=== PATIENT | male | born 1985 | race Caucasian/White ===

== ENCOUNTER 2021-04-20 16:26 | Emergency (ER) | payer OTHER ==
[~2021-04-20] VITALS: Ht 180.3 cm; Wt 95.3 kg
--- NOTE | 2021-04-20 16:26 | NUR ---
pt ambulated to bed 06. BIBA accompanied by [place] [employer].
[2021-04-20] MEDS ORDERED: LORazepam 2 MG/ML VIAL IVP ONE (16:40)
[2021-04-20 17:05] VITALS: BP 133/91
[2021-04-20 17:13] LABS: BASOPHILS % (AUTO) 0.3 % (0.0-2.0); EOSINOPHILS % (AUTO) 0.4 % (0.0-4.0); HEMATOCRIT 45.5 % (36-52); HEMOGLOBIN 15.3 g/dL (12.0-18.0); LYMPHOCYTES # (AUTO) 1.6 K/uL (2.0-11.5); LYMPHOCYTES % (AUTO) 34.4 % (20.5-51.1); MEAN CORPUSCULAR HEMOGLOBIN 32 pg (27-31); MEAN CORPUSCULAR HGB CONC 34 g/dL (33-37); MEAN CORPUSCULAR VOLUME 94.5 fL (80-94); MONOCYTES # (AUTO) 0.3 K/uL (0.8-1.0); MONOCYTES % (AUTO) 6.5 % (1.7-9.3); NEUTROPHILS # (AUTO) 2.7 K/uL (1.8-7.7); NEUTROPHILS % (AUTO) 58.4 % (42.2-75.2); PLATELET COUNT (AUTO) 186 K/uL (140-450); RED BLOOD CELL COUNT(AUTO) 4.81 MIL/uL (4.20-6.10); RED CELL DISTRIBUTION WIDTH 13.8 % (11.6-13.7); WHITE BLOOD COUNT (AUTO) 4.6 K/uL (4.8-10.8)
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
--- NOTE | 2021-04-20 17:24 | NUR ---
Pt taken to CT via W/C.
[2021-04-20] MEDS ORDERED: LORazepam 1 MG TAB PO ONE (17:25)
[2021-04-20 17:26] LABS: ALBUMIN 4.4 g/dL (3.4-5.0); ASPARTATE AMINOTRANSFERASE 24 U/L (15-37); CARBON DIOXIDE 26.2 mmol/L (21-32); CHLORIDE 106 mmol/L (98-107); GFR ARICAN-AMERICAN 109 mL/min (>90); GLUCOSE 105 mg/dL (74-106); POTASSIUM 3.2 mmol/L (3.5-5.1); SODIUM SERUM 140 mmol/L (136-145); TOTAL BILIRUBIN 0.4 mg/dL (0.0-1.0); UREA NITROGEN, BLOOD 9 mg/dL (7-18)
[2021-04-20] MEDS ORDERED: LORazepam 1 MG TAB ONE (17:28)
[2021-04-20 17:30] LABS: ACETAMINOPHEN < 0.5 ug/ml (10-30); SALICYLATE < 2.8 mg/dL (2.8-20.0)
--- NOTE | 2021-04-20 17:41 | NUR ---
PT brought to ER bed 6 via W/C.
--- NOTE | 2021-04-20 17:55 | NUR ---
Provided patient with sandwich, juice, and crackers, patient calm and cooperative.
--- NOTE | 2021-04-20 18:13 | NUR ---
Pt ambulated to restroom with a steady gait
--- NOTE | 2021-04-20 18:22 | NUR ---
Pt ambulated to ER bed 6 with a steady gait.
[2021-04-20 18:35] LABS: APPEARANCE,URINE CLEAR (CLEAR); BILIRUBIN,URINE NEGATIVE (NEGATIVE); BLOOD, URINE TRACE-I (NEGATIVE); COLOR,URINE YELLOW (YELLOW); LEUKOCYTE ESTERASE ,URINE TRACE (NEGATIVE); NITRITE, URINE NEGATIVE (NEGATIVE); UGLUCOSE NEGATIVE (NEGATIVE)
[2021-04-20 18:51] LABS: BARBITURATE, URINE NEGATIVE ng/ml (NEG <=200); BENZODIAZEPINE, URINE NEGATIVE ng/mL (NEG <=200); CANNABINOID, URINE NEGATIVE ng/mL (NEG <=50); COCAINE, URINE POSITIVE ng/mL (NEG <=300); OPIATE, URINE NEGATIVE ng/mL (NEG <=2000); PHENCYCLIDINE SCREEN,URINE NEGATIVE ng/mL (NEG <=25)
--- NOTE | 2021-04-20 18:54 | NUR ---
Pt sleeping on right side, VSS, will continue to monitor.
--- NOTE | 2021-04-20 19:16 | NUR ---
Gave report to KATHERINE Dougherty. Transfer of care at this time.
--- NOTE | 2021-04-20 19:30 | NUR ---
Patient appears to be resting comfortably in bed. Vital Signs within normal limits. Respirations even and unlabored.
--- NOTE | 2021-04-20 23:49 | NUR ---
PT SLEEPING IN BED. EVEN CHEST RISE AND FALL NOTED.
--- NOTE | 2021-04-21 01:17 | NUR ---
PT AWAKE AND ASKING FOR WATER.
--- NOTE | 2021-04-21 03:32 | NUR ---
WAKED SHARON AND PCR TO LAB AND HANDED TO PHLEB
--- NOTE | 2021-04-21 05:55 | NUR ---
Still patient resting comfortable in bed. Vital Signs within normal limits.
--- NOTE | 2021-04-21 07:14 | NUR ---
SPOKE WITH FRACISCO FROM [facility]. WANTS FACESHEET AND HOLD FAXED TO [phone] FOR BED PLACEMENT
--- NOTE | 2021-04-21 09:07 | NUR ---
PATIENT AMBULATED TO RESTROOM ACCOMPANIED BY 1-1 SITTER.
[2021-04-21] MEDS ORDERED: HYDROXYZINE HYDROCHLORIDE 25 MG TAB PO ONE (09:15)
[2021-04-21] MEDS ORDERED: levETIRAcetam 500 MG TAB PO ONE ×2 (09:50→10:00)
[2021-04-21] MEDS ORDERED: LEVE1000 PO (10:02)
--- NOTE | 2021-04-21 10:30 | NUR ---
PT ALERT AND AWAKE, BREATHING EVEN AND UNLABORED, NO DISTRESS NOTED. ALL NEEDS MET AT THIS TIME. SITTER REMAINS AT BEDSIDE
--- NOTE | 2021-04-21 12:00 | NUR ---
PT ALERT AND AWAKE, BREATHING EVEN AND UNLABORED, NO DISTRESS NOTED. ALL NEEDS MET AT THIS TIME. SITTER REMAINS AT BEDSIDE
[2021-04-21] MEDS ORDERED: POTASSIUM CHLORIDE 10 MEQ TABER PO ONE (12:15)
--- NOTE | 2021-04-21 12:16 | NUR ---
SPOKE WITH WILBUR FROM [facility]. STATES THEY MAY BE ABLE TO ACCEPT PATIENT IF PT RECEIVES 20 MEQ [address]SIUM [address] CHAMORRO MADE AWARE. PT RECEIVED MEDICATION AND WILBUR RENOTIFIED.
--- NOTE | 2021-04-21 13:37 | NUR ---
Patient to be transferred to [facility]. Is being transferred due to higher level of care. Receiving facility has accepting physician and available space. ER physician has signed transfer form. Patient or responsible libertarian has agreed to transfer and signed form. Patient belongings inventoried and will be sent with patient. Copy of nursing notes, lab reports, EKG, Physicians Orders and X-rays to be sent with patient. Report called to Amy MURPHY at receiving facility. [facility] ambulance service has been called for transfer. ETA is 10mins.
--- NOTE | 2021-04-21 14:00 | NUR ---
PT RESTING WITH EYES CLOSED, BREATHING EVEN AND UNLABORED. SITTER REMAINS AT BEDSIDE
[2021-04-21 15:26] VITALS: BP 140/88
--- NOTE | 2021-04-21 15:26 | NUR ---
[facility] AT BEDSIDE FOR TRANSFER
--- NOTE | 2021-04-21 15:29 | NUR ---
PT TAKEN BY [facility] TRANSPORT AT THIS TIME
== END 2021-04-21 15:29 | disposition psychiatric hospital, planned readmission (93) ==
LOC: MED 16:26
DX: T14.91XA Suicide attempt, initial encounter (principal); Z20.822 Contact with and (suspected) exposure to COVID-19; F41.9 Anxiety disorder, unspecified; F32.9 Major depressive disorder, single episode, unspecified; Z88.2 Allergy status to sulfonamides; Z88.8 Allergy status to other drugs, medicaments and biological substances
CPT/HCPCS: 36415; 70490; 80053; 80305; 81001; 85025; 87086; 87426; 93005; 99285; G0480; G0482; U0003

== ENCOUNTER 2022-11-10 14:31 | Inpatient (IN) | payer OTHER ==
[~2022-11-10] VITALS: Ht 182.9 cm; Wt 90.7 kg
[~2022-11-10 14:31] MED LIST: LEVE1000 PO
[2022-11-10] MEDS ORDERED: LORazepam 2 MG/ML VIAL ONE ×2 (14:40→20:58)
[2022-11-10 14:41] VITALS: BP 101/65
[2022-11-10] MEDS ORDERED: LORazepam 2 MG/ML VIAL IM ONE ×2 (14:45)
[2022-11-10] MEDS ORDERED: levETIRAcetam 1,000 MG in NACL 0.9% 100 ML IV ONE (14:50)
--- NOTE | 2022-11-10 15:00 | NUR ---
RECEIVED VERBAL ORDER FROM DR GANDHI FOR OK FOR IVF IN THE FOOT
[2022-11-10] MEDS ORDERED: NACL 0.9% 1,000 ML IV ONE ×2 (15:05→18:00)
--- NOTE | 2022-11-10 15:11 | NUR ---
37 y/o male biba from home for Suicidal Ideation and Seizures today. Per paramedics, patient was attempting to cut himself with a knife. At home, patient had a seizure and en route patient had another seizure. Paramedics gave 10mg of Versed IM en route. Patient has had previous suicide attempts per marcos. Medical History:SEIZURE ALLERGY: UNABLE TO OBTAIN
[2022-11-10 15:34] LABS: BASOPHILS % (AUTO) 0.7 % (0.0-2.0); EOSINOPHILS # (AUTO) 0.1 K/uL (0-0.4); EOSINOPHILS % (AUTO) 1.8 % (0.0-4.0); HEMATOCRIT 42.6 % (36-52); HEMOGLOBIN 14.5 g/dL (12.0-18.0); LYMPHOCYTES # (AUTO) 2.5 K/uL (2.0-11.5); MEAN CORPUSCULAR HEMOGLOBIN 31 pg (27-31); MEAN CORPUSCULAR HGB CONC 34 g/dL (33-37); MEAN CORPUSCULAR VOLUME 91.5 fL (80-94); MONOCYTES # (AUTO) 0.3 K/uL (0.8-1.0); NEUTROPHILS % (AUTO) 39.5 % (42.2-75.2); PLATELET COUNT (AUTO) 201 K/uL (140-450); RED BLOOD CELL COUNT(AUTO) 4.65 MIL/uL (4.20-6.10); RED CELL DISTRIBUTION WIDTH 13.9 % (11.6-13.7)
[2022-11-10 16:00] LABS: ALBUMIN 4.1 g/dL (3.4-5.0); ANION GAP 17.6 (8-16); ASPARTATE AMINOTRANSFERASE 25 U/L (15-37); CARBON DIOXIDE 21.9 mmol/L (21-32); CHLORIDE 104 mmol/L (98-107); CREATININE 1.1 mg/dL (0.6-1.3); GFR ARICAN-AMERICAN 97 mL/min (>90); GLUCOSE 92 mg/dL (74-106); PHOSPHORUS 3.2 mg/dL (2.5-4.9); POTASSIUM 3.5 mmol/L (3.5-5.1); SALICYLATE < 2.8 mg/dL (2.8-20.0); SODIUM SERUM 140 mmol/L (136-145); TOTAL BILIRUBIN 0.3 mg/dL (0.0-1.0); UREA NITROGEN, BLOOD 14 mg/dL (7-18)
[2022-11-10 16:01] LABS: ACETAMINOPHEN < 0.5 ug/ml (10-30)
--- NOTE | 2022-11-10 17:19 | NUR ---
# 16 FR Urinary catheter inserted utilizing sterile technique. Immediate return of 100 ml yellow clear urine noted. Urine sample collected and sent to lab. Pt tolerated procedure well.
--- NOTE | 2022-11-10 17:37 | NUR ---
Spoke to Igor, responsible libertarian, updated him on patients status and requested med list. Per Igor, patient does not take medication. Responsible libertarian is requesting if possible to have Psychiatrist call him when he gets evaluated. Addendum: 11/10/22 at 1746 by [email or web address] Patient is prescribed Kepra but does not take medication.
[2022-11-10 18:48] LABS: APPEARANCE,URINE CLEAR (CLEAR); COLOR,URINE YELLOW (YELLOW)
[2022-11-10 18:49] LABS: BILIRUBIN,URINE NEGATIVE (NEGATIVE); BLOOD, URINE TRACE (NEGATIVE); UGLUCOSE NEGATIVE (NEGATIVE)
[2022-11-10 18:50] LABS: LEUKOCYTE ESTERASE ,URINE NEGATIVE (NEGATIVE); NITRITE, URINE NEGATIVE (NEGATIVE)
[2022-11-10 19:06] LABS: RBC,URINE 0-5 /HPF (0-5); TRICHOMONAS,URINE None Seen /HPF (None Seen); WBC,URINE NONE SEEN /HPF (0-5); YEAST,URINE None Seen /HPF (None Seen)
--- NOTE | 2022-11-10 19:23 | NUR ---
Report given to KATHERINE Avila for transfer of care.
[2022-11-10] MEDS ORDERED: MORPHINE SULFATE 2 MG/ML SYR IVP PRN (20:35)
[2022-11-10] MEDS ORDERED: ONDANSETRON 4 MG/2 ML VIAL IVP PRN (20:35)
[2022-11-10] MEDS ORDERED: ACETAMINOPHEN 325 MG TAB PO PRN (20:35)
[2022-11-10] MEDS ORDERED: LORazepam 2 MG/ML VIAL IVP PRN (20:35)
--- NOTE | 2022-11-10 20:55 | NUR ---
PT HAS STARING TO HAVE SEIZURE. CALL , HE ORDERED ATIVAN
--- NOTE | 2022-11-10 20:59 | NUR ---
PT NOTED WITH ACITVE SEIZURE. VERBAL ORDER FOR ATIVAN 2MG IVPx1 RECEIVED FORM DR. GANDHI
[2022-11-10] MEDS ORDERED: LORazepam 2 MG/ML VIAL IVP ONE (21:00)
[2022-11-10] MEDS ORDERED: levETIRAcetam 100 MG/ML VIAL IV ONE (21:11)
[2022-11-10 21:12] LABS: BARBITURATE, URINE NEGATIVE ng/ml (NEG <=200); BENZODIAZEPINE, URINE NEGATIVE ng/mL (NEG <=200); CANNABINOID, URINE NEGATIVE ng/mL (NEG <=50); COCAINE, URINE POSITIVE ng/mL (NEG <=300); OPIATE, URINE NEGATIVE ng/mL (NEG <=2000); PHENCYCLIDINE SCREEN,URINE NEGATIVE ng/mL (NEG <=25)
[2022-11-10] MEDS: levETIRAcetam 500 MG in NACL 0.9% 100 ML IV SCH (21:25)
[2022-11-10] MEDS: NACL 0.9% 1,000 ML IV SCH (21:26)
--- NOTE | 2022-11-10 21:57 | NUR ---
PT HAD SEIZURE, NOTIFIED.
--- NOTE | 2022-11-10 21:58 | NUR ---
PT NOTED WITH RECURRENT SEIZURE. DR. SHAIKH CAMARA AT THIS TIME.
--- NOTE | 2022-11-10 22:57 | NUR ---
RETURN CALL FROM DR. STONE AND RECEIVED ORDERS TO UPGRADE TO ICU AND START PRECEDEX DRIP. ORDERS CARRIED OUT.
[2022-11-10] MEDS ORDERED: DEXMEDETOMIDINE HCL 400 MCG in NACL 0.9% 96 ML IV PRN (23:00)
--- NOTE | 2022-11-10 23:15 | NUR ---
PT IS HAVING SOME SORT OF SEIZING, BUT WE THEN AWAKE AND HAVE CONVERSTION. WHAT HE TOLD ME, HE HAS SUICIDAL IDEATION, STILL HAS A PLAN, BY JUMPING OFF THE BRIDGE. WHEN I ASKED HIM WHT HE SAID THAT WAY HE COULD BE IN [place].
[2022-11-10] MEDS ORDERED: DEXMEDETOMIDINE HCL 100 MCG/ML 2 ML VIAL IV ONE (23:19)
--- NOTE | 2022-11-10 23:25 | NUR ---
TRANSFER FROM ER, REPORT RECEIVED FROM KATHERINE MULLINS. PATIENT IS CURRENTLY ON 5150 HOLD, SECONDARY TO SUICIDAL IDEATION (HAS PLAN), AND ETOH. PATIENT WITH HISTORY OF SEIZURES AND REPORTS THAT SEIZURES STARTTED AT AGE 16; TAKES KEPPRA AT HOME. PATIENT RECEIVED AWAKE, ALERT, AND ALTERED. ABLE TO SELF TRANSFER FROM [facility] TO ICU BED WITH ASSISTANCE. HAS 20G IN RIGHT FOOT, AND 22G IN RIGHT AC, HAS PRECEDEX RUNNING AT 0.2MCG, AND NS RUNNING AT 125M/HR. PATIENT IS ON ROOM AIR AND ABLE TO ANSWER QUESTIONS AND FOLLOW COMMANDS. WILL CONTINUE TO MONITOR PATIENT FOR ADVERSE REACTIONS
[2022-11-11] VITALS (12 sets, daily range): BP systolic 92–136; BP diastolic 48–89
--- NOTE | 2022-11-11 00:40 | NUR ---
PATIENT EXPERIENCED SEIZURE LIKE ACTIVITY LASTING APPROXIMATELY 3-4 MINUTES. NOTIFIED MD TO OBTAIN ORDERS FOR PRN ATIVAN FOR SEIZURE MANAGEMENT. PATIENT ABLE TO ANSWER QUESTIONS AND FOLLOW COMMANDS
[2022-11-11] MEDS ORDERED: LORazepam 2 MG/ML VIAL IVP PRN (01:00)
--- NOTE | 2022-11-11 04:33 | NUR ---
Patient will be admitted to care of [facility] . Admited to 5150, ALCHOHOL AND SEIZURE. Will go to room ICU. Belongings list completed. Report to JESSICA .
[2022-11-11] MEDS: NACL 0.9% 1,000 ML IV SCH ×3 (04:35→20:35)
[2022-11-11 05:54] LABS: BASOPHILS % (AUTO) 0.4 % (0.0-2.0); EOSINOPHILS # (AUTO) 0.2 K/uL (0-0.4); EOSINOPHILS % (AUTO) 3.6 % (0.0-4.0); HEMATOCRIT 39.6 % (36-52); HEMOGLOBIN 13.4 g/dL (12.0-18.0); LYMPHOCYTES # (AUTO) 2.2 K/uL (2.0-11.5); LYMPHOCYTES % (AUTO) 46.6 % (20.5-51.1); MEAN CORPUSCULAR HEMOGLOBIN 31 pg (27-31); MEAN CORPUSCULAR HGB CONC 34 g/dL (33-37); MEAN CORPUSCULAR VOLUME 92.2 fL (80-94); MONOCYTES # (AUTO) 0.3 K/uL (0.8-1.0); MONOCYTES % (AUTO) 6.1 % (1.7-9.3); NEUTROPHILS % (AUTO) 43.3 % (42.2-75.2); PLATELET COUNT (AUTO) 169 K/uL (140-450); WHITE BLOOD COUNT (AUTO) 4.7 K/uL (4.8-10.8)
[2022-11-11 06:30] LABS: ALBUMIN 3.6 g/dL (3.4-5.0); ANION GAP 12.5 (8-16); CARBON DIOXIDE 27.1 mmol/L (21-32); CREATININE 0.9 mg/dL (0.6-1.3); MAGNESIUM 2.1 mg/dL (1.8-2.4); POTASSIUM 3.6 mmol/L (3.5-5.1); TOTAL BILIRUBIN 0.4 mg/dL (0.0-1.0)
--- NOTE | 2022-11-11 07:25 | NUR ---
TRANSFER OF CARE TO DAY SHIFT, REPORT ENDORSED TO KATHERINE VICTORIA
--- NOTE | 2022-11-11 07:40 | NUR ---
Received pt in bed with eyes closed, easily aroused to name. Pt A&Ox3. O2 sat 96% on room air. Sinus miranda on monitor. Abd soft with active bowel sounds. Continent bowel and bladder. Peripheral IV 22 gauge on right forearm intact and infusing NS@125ml/hr. Peripheral IV 20 gauge on right foot saline locked. Safety precautions in place.
--- NOTE | 2022-11-11 07:50 | NUR ---
Dr. Rodriguez at bedside examining patient. Pt denies any thoughts of suicidal ideation. New order received.
--- NOTE | 2022-11-11 07:55 | NUR ---
Spoke to Igor Art regarding pt status. Per Igor, pt has a problem drinking and has been hospitalized in September for the same reason of threatening to kill himself when he is intoxicated with alcohol. Per Igor, he drinks heavily on , Fridays, and Friday. Igor asked to speak with psych doctor regarding patient. Will endorse to psych doctor.
[2022-11-11] MEDS: levETIRAcetam 500 MG in NACL 0.9% 100 ML IV SCH ×2 (08:05→21:02)
[2022-11-11] MEDS: chlordiazePOXIDE 25 MG CAP PO SCH ×3 (08:16→17:56)
[2022-11-11] MEDS: THIAMINE 100 MG TAB PO SCH (08:16)
[2022-11-11] MEDS: FOLIC ACID 1 MG TAB PO SCH (08:20)
--- NOTE | 2022-11-11 09:17 | NUR ---
PATIENT HAS BEEN SCREENED AND CATEGORIZED LOW NUTRITION RISK. PATIENT WILL BE SEEN WITHIN 7 DAYS OF ADMISSION. 11/17/22 REVIEWED BY KARAN HUBER RD
--- NOTE | 2022-11-11 12:45 | NUR ---
Seen by Dr. Erickson. No new orders.
--- NOTE | 2022-11-11 13:45 | NUR ---
Dr. Csat on telepsych phone call with pt. Per Dr. Cast, he will call pt's partner Igor Art to determine decision.
--- NOTE | 2022-11-11 14:00 | NUR ---
patch worker at bedside.
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
--- NOTE | 2022-11-11 16:54 | NUR ---
Contacted Dr. Rodriguez regarding updates and per Dr. Rodriguez, pt is not medically cleared yet. Will continue to monitor.
--- NOTE | 2022-11-11 17:11 | NUR ---
DC PLANNING SW MET WITH PT AT BEDSIDE TO COMPLETE ASSESSMENT. PT WAS ALERT AND ORIENTED AND ABLE TO PROVIDE ALL OF HIS OWN INFORMATION. PT REPOTS RESIDING IN A TOWNHOUSE WITH HIS PARTNER AT THE ADDRESS LISTED ON FILE. PT IDENTIFIED LUIS TREVIZO, PARTNER, EMERGENCY CONTACT AND DECLINED TO ADD ADDITIONAL EC. PT DENIES AD IN PLACE AND DECLINED AD OFFERED BY SW. PT REPORTS LAST VISIT WITH PCP, 3 YRS AGO. SPOKE TO PT ABOUT IMPORTANCE OF F/UP CARE, PT RECEPTIVE AND PROVIDE SW WITH PERMISSION TO SCHEDULE F/UP ONCE CLEARED FOR DC. PT REPORTS NONCOMPLIANCE WITH MEDICATION HE REPORTS HE DOES NOT LIKE SIDE EFFECTS OF NEW SEIZURE MEDICATION. PT REPORTS RECEIVING MEDICATION FROM [facility] [place], WHEN NEEDED. PT REPORTS BEING INDEPENDENT IN ALL ACTIVITIES AND DENIES USE OF DME. PT REPORTS SX OF ANXIETY AND DEPRESSION THAT BEGAN 1 YR AGO AFTER LOSING HIS JOB. PT REPORTS EXCESSIVE DRINKING A RESULT AND HAS UTILIZED DRINKING A MALADAPTIVE COPING SKILL. PT REPORTS A RECENT 5150 HOLD 4-5 MONTHS AGO. PT REPORTS ALCOHOL USE AND REPORTS DRINKING SEVERAL TIMES WEEK AND DRINKING " HARD LIQUOR. PT REPORTS RECREATIONAL USE OF COCAINE,HOWEVER REPORTS COCAINE USE IS NOT AN ISSUE. SW PROVIDED PT WITH PSYCHOEDUCATION ON ASSISTED ALCOHOL USE. PT RECEPTIVE. SW EXPLAINED CURRENT 5150 HOLD AND EXPLAINED NEXT STEPS MOVING FORWARD AND PSYCH PLACEMENT. PT AWARE AND VERBALIZED UNDERSTANDING. PT DENIES SI/HI/SIB/AH/VH. PT REPORTS HX OF SEIZURES. TENTATIVE DC PLAN IS FOR PSYCH PLACEMENT, HOWEVER, CURRENTLY WAITING ON MEDICAL CLEARANCE. SW TO FOLLOW Addendum: 11/11/22 at 1713 by Corky JONES Amended: Links added. Addendum: 11/12/22 at 1053 by Corky JONES REFERRAL PACKET FAXED TO [facility], [phone]. CONFIRMATION FAX RECEIVED ON 11/12 AT [id number]
--- NOTE | 2022-11-11 19:31 | NUR ---
Endorsed to manager shift nurse Daria for continuity of care and endorsed that I spoke with pt partner Igor. Igor states that he feels pt will not harm him if he is discharged home. Igor seeking for resources for alcoholic rehab programs for pt and endorsed for next shift to endorse to reach out to dialysis social worker.
[2022-11-12] VITALS (7 sets, daily range): BP systolic 119–136; BP diastolic 71–86
[2022-11-12] MEDS: NACL 0.9% 1,000 ML IV SCH (04:41)
--- NOTE | 2022-11-12 07:17 | NUR ---
TRANSFER OF CARE TO DAY SHIFT, REPORT ENDORSED TO KATHERINE MADRIGAL
--- NOTE | 2022-11-12 07:18 | NUR ---
RECEIVED BEDSIDE REPORT FROM JESSICA TMR TEACHER RN, FOR CONTINUITY OF CARE. PT AWAKE AND ALERT, OPENS EYES SPONTANEOUSLY. SITTING QUIETLY WITHOUT AGITATION. ROOM AIR. SR WITH OCCASIONAL PVC'S ON MONITOR. 22G IV TO R FA INFUSING NS AT 125ML/HR. PRECEDEX REMAINS OFF. CONTINENT OF BOWEL AND BLADDER, USES URINAL. DENIES SUICIDAL/HOMICIDAL IDEATION OR PAIN. PT STATED HE DOES NOT WANT TO TRANSFER TO PSYCH FACILITY. ONGOING VISUAL CHECKS AND Q15MIN CHARTING FOR SAFETY (SEE PAPER CHART), SEIZURE PADS IN PLACE. BED LOCKED AND IN LOWEST POSITION. STANDARD PRECAUTION.
[2022-11-12 07:53] LABS: BASOPHILS % (AUTO) 0.7 % (0.0-2.0); EOSINOPHILS # (AUTO) 0.2 K/uL (0-0.4); EOSINOPHILS % (AUTO) 4.5 % (0.0-4.0); HEMATOCRIT 41.2 % (36-52); HEMOGLOBIN 14.4 g/dL (12.0-18.0); LYMPHOCYTES # (AUTO) 2.2 K/uL (2.0-11.5); LYMPHOCYTES % (AUTO) 42.1 % (20.5-51.1); MEAN CORPUSCULAR HEMOGLOBIN 31 pg (27-31); MEAN CORPUSCULAR HGB CONC 35 g/dL (33-37); MEAN CORPUSCULAR VOLUME 89.9 fL (80-94); MONOCYTES # (AUTO) 0.4 K/uL (0.8-1.0); MONOCYTES % (AUTO) 7.3 % (1.7-9.3); NEUTROPHILS # (AUTO) 2.3 K/uL (1.8-7.7); NEUTROPHILS % (AUTO) 45.4 % (42.2-75.2); PLATELET COUNT (AUTO) 177 K/uL (140-450); RED BLOOD CELL COUNT(AUTO) 4.58 MIL/uL (4.20-6.10); RED CELL DISTRIBUTION WIDTH 13.3 % (11.6-13.7); WHITE BLOOD COUNT (AUTO) 5.1 K/uL (4.8-10.8)
[2022-11-12] MEDS: chlordiazePOXIDE 25 MG CAP PO SCH (08:06)
[2022-11-12] MEDS: THIAMINE 100 MG TAB PO SCH (08:06)
[2022-11-12] MEDS: levETIRAcetam 500 MG in NACL 0.9% 100 ML IV SCH (08:06)
[2022-11-12 08:33] LABS: ANION GAP 12.1 (8-16); CARBON DIOXIDE 25.4 mmol/L (21-32); POTASSIUM 3.5 mmol/L (3.5-5.1)
[2022-11-12 08:37] LABS: MAGNESIUM 1.6 mg/dL (1.8-2.4); PHOSPHORUS 3.1 mg/dL (2.5-4.9)
--- NOTE | 2022-11-12 08:55 | NUR ---
SEEN AND EXAMINED BY DR. MADERA. ORDERS TO DC FLUIDS AND TRANSFER TO TELE STATUS. MD MADE AWARE PT DOES NOT WANT TO TRANSFER TO IP PSYCH FACILITY. PSYCH RE-EVALUATION TO FOLLOW 72HRS AFTER ADMISSION.
[2022-11-12] MEDS: FOLIC ACID 1 MG TAB PO SCH (09:07)
--- NOTE | 2022-11-12 10:03 | NUR ---
SEEN AND EXAMINED BY DR. LEE. OK TO TRANSFER TO [facility] STATUS.
[2022-11-12] MEDS ORDERED: MAG SULF 2000 MG/WATER PREMIX 50 ML IV SCH (10:30)
--- NOTE | 2022-11-12 12:04 | NUR ---
PT RE-EVALUATED BY DR. KAUFFMAN VIA ZOOM. DR SAID OK TO DC FROM PSYCH STANDPOINT AND THAT IT WILL LIKELY TAKE A FEW HOURS TO INPUT HIS NOTE IN THE CHART DUE TO INABILITY TO ACCESS COMPUTER AT THIS TIME. DR. MADERA MADE AWARE.
[2022-11-12] MEDS ORDERED: KEP500 PO (12:18)
[2022-11-12] MEDS ORDERED: ATI.5 PO (12:18)
[2022-11-12] MEDS ORDERED: THIA-34 PO (12:18)
[2022-11-12] MEDS ORDERED: FOLI1TAB90 PO (12:18)
[2022-11-12] MEDS ORDERED: chlordiazePOXIDE 25 MG CAP PO SCH (13:00)
--- NOTE | 2022-11-12 15:10 | NUR ---
CASE MANAGEMENT UPDATED AND CONFIRMED WITH DR. MADERA. PT OK FOR DISCHARGE AT THIS TIME.
--- NOTE | 2022-11-12 16:13 | NUR ---
DISCHARGE PAPERWORK COMPLETE. BP 136/80. AFEBRILE. DENIES PAIN OR SUICIDAL IDEATION. SIGNIFICANT OTHER, MEL, MADE AWARE OF DISCHARGE AND PLANNING TO DEVELOPMENT SPEC PATIENT AT 1730.
--- NOTE | 2022-11-12 18:20 | NUR ---
MEL AT BEDSIDE TO TAKE PT HOME. ALL BELONGINGS WITH PT.
== END 2022-11-12 18:20 | disposition home or self-care (01) | DRG 53 ==
LOC: MED 14:31 → MTU 20:41 → MIC 23:31
PROVIDERS: ADMIT Hospitalist; ATTEND Hospitalist
DX: G40.909 Epilepsy, unspecified, not intractable, without status epilepticus (principal); G92.8 Other toxic encephalopathy; R45.851 Suicidal ideations; R65.10 Systemic inflammatory response syndrome (SIRS) of non-infectious origin without acute organ dysfunction; E83.51 Hypocalcemia; F10.129 Alcohol abuse with intoxication, unspecified; F14.10 Cocaine abuse, uncomplicated; Z20.822 Contact with and (suspected) exposure to COVID-19; F10.139 Alcohol abuse with withdrawal, unspecified; Z88.8 Allergy status to other drugs, medicaments and biological substances; Z79.899 Other long term (current) drug therapy; Y90.8 Blood alcohol level of 240 mg/100 ml or more
CPT/HCPCS: 36415; 70450; 71045; 80048; 80053; 80305; 81001; 82140; 82550; 82553; 83735; 84100; 84484; 85025; 87081; 87635-QW; 93005; 96365; 96372; 96375; 99285; G0480; G0482; J1953; J2060; J3475; Q0092

== ENCOUNTER 2023-08-15 20:12 | Emergency (ER) | payer OTHER ==
[~2023-08-15] VITALS: Ht 182.9 cm; Wt 95.3 kg
[~2023-08-15 20:12] MED LIST changes: +ATI.5 PO; +FOLI1TAB90 PO; +KEP500 PO; -LEVE1000 PO; +THIA-34 PO
[2023-08-15 20:15] VITALS: BP 115/56; PULSE 106; RESP 22; TEMP 98.2; O2SAT 94
[2023-08-15] MEDS ORDERED: levETIRAcetam 100 MG/ML VIAL IV ONE ×3 (20:15→20:25)
[2023-08-15] MEDS ORDERED: levETIRAcetam 4,500 MG in NACL 0.9% 100 ML IV ONE (20:20)
[2023-08-15 20:34] LABS: BASOPHILS % (AUTO) 0.3 % (0.0-2.0); EOSINOPHILS # (AUTO) 0.2 K/uL (0-0.4); EOSINOPHILS % (AUTO) 2.8 % (0.0-4.0); HEMATOCRIT 43.6 % (36-52); HEMOGLOBIN 14.7 g/dL (12.0-18.0); LYMPHOCYTES # (AUTO) 3.2 K/uL (2.0-11.5); LYMPHOCYTES % (AUTO) 46.3 % (20.5-51.1); MEAN CORPUSCULAR HEMOGLOBIN 31 pg (27-31); MEAN CORPUSCULAR HGB CONC 34 g/dL (33-37); MEAN CORPUSCULAR VOLUME 91.3 fL (80-94); MONOCYTES # (AUTO) 0.6 K/uL (0.8-1.0); MONOCYTES % (AUTO) 8.4 % (1.7-9.3); NEUTROPHILS # (AUTO) 2.9 K/uL (1.8-7.7); NEUTROPHILS % (AUTO) 42.2 % (42.2-75.2); PLATELET COUNT (AUTO) 214 K/uL (140-450); RED BLOOD CELL COUNT(AUTO) 4.77 MIL/uL (4.20-6.10); RED CELL DISTRIBUTION WIDTH 13.5 % (11.6-13.7); WHITE BLOOD COUNT (AUTO) 6.9 K/uL (4.8-10.8)
[2023-08-15] MEDS ORDERED: ONDANSETRON 4 MG/2 ML VIAL IVP ONE (20:35)
[2023-08-15] MEDS ORDERED: LORazepam 2 MG/ML VIAL IVP ONE (20:45)
[2023-08-15 20:48] LABS: ALBUMIN 4.1 g/dL (3.4-5.0); ANION GAP 19.1 (8-16); CALCIUM 8.4 mg/dL (8.5-10.1); CARBON DIOXIDE 21.4 mmol/L (21-32); CREATININE 1.6 mg/dL (0.6-1.3); POTASSIUM 3.5 mmol/L (3.5-5.1); TOTAL BILIRUBIN 0.3 mg/dL (0.0-1.0); TOTAL PROTEIN, SERUM 8.1 g/dL (6.4-8.2)
[2023-08-15] MEDS ORDERED: MIDAZOLAM 2 MG/2 ML VIAL IVP ONE (20:50)
[2023-08-15 20:52] LABS: LACTIC ACID 4.9 mmol/L (0.4-2.0)
[2023-08-15 22:59] LABS: APPEARANCE,URINE CLEAR (CLEAR); BILIRUBIN,URINE NEGATIVE (NEGATIVE); BLOOD, URINE NEGATIVE (NEGATIVE); COLOR,URINE YELLOW (YELLOW); LEUKOCYTE ESTERASE ,URINE NEGATIVE (NEGATIVE); NITRITE, URINE NEGATIVE (NEGATIVE); PROTEIN,URINE NEGATIVE (NEGATIVE); UGLUCOSE NEGATIVE (NEGATIVE); UROBILINOGEN,URINE 0.2 EU/dL (0.2 - 1)
[2023-08-16] MEDS ORDERED: KEP500 PO (00:05)
[2023-08-16 00:25] VITALS: BP 112/75; PULSE 83; RESP 19; TEMP 98.1; O2SAT 99
== END 2023-08-16 00:25 | disposition home or self-care (01) ==
LOC: MED 20:12
DX: G40.901 Epilepsy, unspecified, not intractable, with status epilepticus (principal); Z88.8 Allergy status to other drugs, medicaments and biological substances; Z79.899 Other long term (current) drug therapy
CPT/HCPCS: 36415; 70450; 71045; 80053; 81003; 83605; 83690; 85025; 87086; 93005; 96365; 96375; 99291; G0482; J1953; J2250; J2405; Q0092; 99285